=== PATIENT | male | born 1965 | race Caucasian/White ===

== ENCOUNTER 2022-12-26 17:07 | Inpatient (IN) | payer MEDICAID ==
[~2022-12-26] VITALS: Ht 177.8 cm; Wt 91.6 kg
[2022-12-26] MEDS ORDERED: AZITHROMYCIN 250 MG TABLET PO ONE (17:30)
[2022-12-26] MEDS ORDERED: CEFTRIAXONE 1 G in IV DEXTROSE 5% 50 ML IV ONE (17:30)
[2022-12-26] MEDS ORDERED: DEXAMETHASONE SOD PHOSPHATE 4 MG INJ IV ONE (17:30)
[2022-12-26] MEDS ORDERED: CEFTRIAXONE /D5W 50ML IVPB **ER PYXIS IV ONE (17:35)
[2022-12-26] MEDS ORDERED: AZITHROMYCIN 250 MG TABLET ONE (17:36)
[2022-12-26] MEDS ORDERED: DEXAMETHASONE SOD PHOSPHATE 10 MG INJ ONE (17:36)
[2022-12-26 17:37] LABS: BASOPHILS # (AUTO) 0.2 K/UL (0.0-0.2); DIFFERENTIAL COMMENT 1; EOSINOPHILS # (AUTO) 0.1 K/uL (0.0-0.7); EOSINOPHILS % (AUTO) 0.9 % (0.0-7.0); HEMATOCRIT 59.4 % (36.7-47.1); HEMOGLOBIN 19.1 g/dL (12.5-16.3); LYMPHOCYTES % (AUTO) 24.3 % (20.5-51.5); MEAN CORPUSCULAR HEMOGLOBIN 27.8 uug (23.8-33.4); MEAN CORPUSCULAR HGB CONC 32 g/dL (32.5-36.3); MEAN CORPUSCULAR VOLUME 86.1 fL (73.0-96.2); MONOCYTES # (AUTO) 0.5 K/uL (0.1-1.30); MONOCYTES % (AUTO) 6.3 % (0.0-11.0); NEUTROPHILS # (AUTO) 5.5 K/uL (1.8-8.9); NEUTROPHILS % (AUTO) 65.5 % (38.5-71.5); PLATELET COUNT (AUTO) 200 K/uL (152-348); WHITE BLOOD COUNT (AUTO) 8.4 K/uL (3.6-10.2)
[2022-12-26 17:46] LABS: CALCIUM 10.1 mg/dL (8.5-10.1); CARBON DIOXIDE 26 mmol/L (21-32); CHLORIDE 100 mmol/L (98-107); CREATININE 1.7 mg/dL (0.6-1.3); GLUCOSE 108 mg/dL (74-106); POTASSIUM 3.8 mmol/L (3.5-5.1); SODIUM SERUM 135 mmol/L (136-145); UREA NITROGEN, BLOOD 18 mg/dL (7-18)
[2022-12-26 17:59] LABS: ALANINE AMINOTRANSFERASE 28 U/L (16-63); ALBUMIN 3.9 g/dL (3.4-5.0); ALKALINE PHOSPHATASE 78 U/L (50-136); ASPARTATE AMINOTRANSFERASE 15 U/L (15-37); BILIRUBIN,DIRECT 0.2 mg/dL (0.0-0.2); NT-PRO BNP 17 pg/mL (0-125); TOTAL PROTEIN, SERUM 8.8 g/dL (6.4-8.2)
[2022-12-26] MEDS ORDERED: IV NORMAL SALINE 1000 ML BAG IV ONE (18:00)
[2022-12-27 00:18] VITALS: BP 137/75; TEMP 98.2; O2SAT 96
[2022-12-27] MEDS ORDERED: ONDANSETRON 4 MG/2 ML VIAL IV PRN (00:45)
[2022-12-27] MEDS ORDERED: ACETAMINOPHEN 325 MG TABLET PO PRN (00:45)
[2022-12-27] MEDS ORDERED: IV 0.9% SODIUM CHLORID+ 20 KCL 1,000 ML ONE (02:36)
[2022-12-27] MEDS: ZOLPIDEM 5 MG TABLET PO PRN ×2 (03:04→21:17)
[2022-12-27] MEDS: POTASSIUM CHLORIDE 20 MEQ in IV NS 1000 ML 1,000 ML IV PRN ×2 (03:12→15:28)
[2022-12-27 04:30] VITALS: BP 118/64; TEMP 98.2; O2SAT 96
[2022-12-27] MEDS: PANTOPRAZOLE SODIUM 40 MG TABLET.DR PO SCH (06:17)
[2022-12-27 06:42] LABS: BASOPHILS % (AUTO) 0.2 % (0.0-2.0); HEMATOCRIT 50.5 % (36.7-47.1); HEMOGLOBIN 16.6 g/dL (12.5-16.3); LYMPHOCYTES % (AUTO) 13.9 % (20.5-51.5); MEAN CORPUSCULAR HGB CONC 33 g/dL (32.5-36.3); MONOCYTES # (AUTO) 0.2 K/uL (0.1-1.30); MONOCYTES % (AUTO) 2.3 % (0.0-11.0); NEUTROPHILS # (AUTO) 6.3 K/uL (1.8-8.9); NEUTROPHILS % (AUTO) 83.6 % (38.5-71.5); PLATELET COUNT (AUTO) 175 K/uL (152-348); RED BLOOD CELL COUNT(AUTO) 5.93 MIL/uL (4.06-5.63); RED CELL DISTRIBUTION WIDTH 16.8 % (12.1-16.2); WHITE BLOOD COUNT (AUTO) 7.5 K/uL (3.6-10.2)
[2022-12-27 07:00] LABS: DIFFERENTIAL COMMENT 1
[2022-12-27 07:02] LABS: ALBUMIN 3.1 g/dL (3.4-5.0); BILIRUBIN,TOTAL 0.6 mg/dL (0.2-1.0); CALCIUM 8.9 mg/dL (8.5-10.1); CREATININE 1.6 mg/dL (0.6-1.3); PHOSPHOROUS 3.1 mg/dL (2.5-4.9); POTASSIUM 4.1 mmol/L (3.5-5.1); TOTAL PROTEIN, SERUM 7.2 g/dL (6.4-8.2)
[2022-12-27 07:21] LABS: IRON, SERUM 35 ug/dL (50-175)
[2022-12-27 11:31] VITALS: BP 102/64; TEMP 97.6; O2SAT 98
[2022-12-27] MEDS ORDERED: LOSA25TA27 PO (15:31)
[2022-12-27] MEDS ORDERED: ASPI-1101 PO (15:31)
[2022-12-27] MEDS ORDERED: SERT-439 PO (15:32)
[2022-12-27] MEDS ORDERED: ABAC1TAB15 PO (15:32)
[2022-12-27] MEDS ORDERED: BISO5TAB20 PO (15:33)
[2022-12-27] MEDS ORDERED: CYAN10006 IM (15:35)
[2022-12-27] MEDS ORDERED: TEST200V3 IM (15:36)
[2022-12-27] MEDS ORDERED: TAMS-3 PO (15:37)
[2022-12-27 15:50] VITALS: BP 116/56; TEMP 97.7; O2SAT 96
[2022-12-27] MEDS ORDERED: CYANOCOBALAMIN 1000 MCG/ML VIAL IM SCH (16:00)
[2022-12-27] MEDS ORDERED: TESTOSTERONE CYPIONATE 200 MG/ML VIAL IM SCH (16:00)
[2022-12-27 20:32] VITALS: BP 111/55; TEMP 98; O2SAT 96
[2022-12-27] MEDS: TAMSULOSIN HCL 0.4 MG CAP.SR.24H PO SCH (21:17)
[2022-12-28 04:10] VITALS: BP 122/69; TEMP 98; O2SAT 96
[2022-12-28] MEDS: POTASSIUM CHLORIDE 20 MEQ in IV NS 1000 ML 1,000 ML IV PRN ×2 (05:05→19:20)
[2022-12-28] MEDS: PANTOPRAZOLE SODIUM 40 MG TABLET.DR PO SCH (06:08)
[2022-12-28] MEDS: SERTRALINE HCL 50 MG TABLET PO SCH (08:14)
[2022-12-28] MEDS: ATENOLOL 50 MG TABLET PO SCH (08:14)
[2022-12-28] MEDS: ASPIRIN EC 81 MG TABLET.DR PO SCH (08:18)
[2022-12-28] MEDS ORDERED: Medication Not On Formulary EA (Bisoprolol Fumarate 5 MG) PO SCH (09:00)
[2022-12-28 11:31] VITALS: BP 111/64; TEMP 98.2; O2SAT 97
[2022-12-28] MEDS: LOPERAMIDE HCL 2 MG CAPSULE PO PRN (14:31)
[2022-12-28] MEDS: LORAZEPAM 1 MG TABLET PO PRN (15:27)
[2022-12-28 15:29] LABS: *BILIRUBIN,URIN NEGATIVE (NEGATIVE); *BLOOD, URINE NEGATIVE (NEGATIVE); *CLARITY,URINE CLEAR (CLEAR); *COLOR,URINE LIGHT YELLOW (YELLOW); *KETONES,URINE NEGATIVE (NEGATIVE); *PROTEIN,URINE NEGATIVE (NEGATIVE); *UROBILINOGEN,URINE 0.2 E.U./dl (NORMAL); LEUKOCYTE ESTERASE ,URINE NEGATIVE (NEGATIVE); NITRITE, URINE NEGATIVE (NEGATIVE); PH,URINE 5.5 (5.0-8.0); UGLUCOSE NEGATIVE (NEGATIVE)
[2022-12-28 16:00] VITALS: BP 122/67; TEMP 98.2; O2SAT 96
[2022-12-28 16:07] LABS: *CREATININE,URINE 47.6 mg/dL (30-125); *URINE TOTAL PROTEIN RANDOM 6.3 mg/dL (<150/24HR)
[2022-12-28 20:00] VITALS: BP 124/62; TEMP 98.7; O2SAT 97
[2022-12-28] MEDS: TAMSULOSIN HCL 0.4 MG CAP.SR.24H PO SCH (20:00)
[2022-12-29 04:00] VITALS: BP 137/82; TEMP 98.5; O2SAT 99
[2022-12-29] MEDS: PANTOPRAZOLE SODIUM 40 MG TABLET.DR PO SCH (06:15)
[2022-12-29 07:13] LABS: BASOPHILS % (AUTO) 0.5 % (0.0-2.0); EOSINOPHILS # (AUTO) 0.1 K/uL (0.0-0.7); EOSINOPHILS % (AUTO) 1.6 % (0.0-7.0); HEMATOCRIT 47.9 % (36.7-47.1); HEMOGLOBIN 15.7 g/dL (12.5-16.3); LYMPHOCYTES # (AUTO) 1.6 K/uL (0.8-4.8); LYMPHOCYTES % (AUTO) 27.6 % (20.5-51.5); MEAN CORPUSCULAR HEMOGLOBIN 27.9 uug (23.8-33.4); MEAN CORPUSCULAR HGB CONC 33 g/dL (32.5-36.3); MEAN CORPUSCULAR VOLUME 85.3 fL (73.0-96.2); MONOCYTES # (AUTO) 0.4 K/uL (0.1-1.30); MONOCYTES % (AUTO) 6.6 % (0.0-11.0); NEUTROPHILS # (AUTO) 3.6 K/uL (1.8-8.9); NEUTROPHILS % (AUTO) 63.7 % (38.5-71.5); PLATELET COUNT (AUTO) 145 K/uL (152-348); RED BLOOD CELL COUNT(AUTO) 5.62 MIL/uL (4.06-5.63); RED CELL DISTRIBUTION WIDTH 16.7 % (12.1-16.2); WHITE BLOOD COUNT (AUTO) 5.7 K/uL (3.6-10.2)
[2022-12-29 07:30] LABS: BILIRUBIN,TOTAL 0.4 mg/dL (0.2-1.0); CALCIUM 8.5 mg/dL (8.5-10.1); CREATININE 1.4 mg/dL (0.6-1.3); MAGNESIUM 1.8 mg/dL (1.8-2.4); PHOSPHOROUS 2.8 mg/dL (2.5-4.9); POTASSIUM 3.8 mmol/L (3.5-5.1); TOTAL PROTEIN, SERUM 6.7 g/dL (6.4-8.2)
[2022-12-29 07:55] LABS: DIFFERENTIAL COMMENT 1
[2022-12-29 08:00] VITALS: BP 126/78; TEMP 98; O2SAT 98
[2022-12-29] MEDS: SERTRALINE HCL 50 MG TABLET PO SCH (09:21)
[2022-12-29] MEDS: ASPIRIN EC 81 MG TABLET.DR PO SCH (09:21)
[2022-12-29] MEDS: ATENOLOL 50 MG TABLET PO SCH (09:21)
[2022-12-29] MEDS: HYDROCODONE/APAP 5-325MG TABLET PO PRN ×2 (09:22→21:25)
[2022-12-29] MEDS: POTASSIUM CHLORIDE 20 MEQ in IV NS 1000 ML 1,000 ML IV PRN ×2 (09:27→21:25)
[2022-12-29] MEDS: TRIUMEQ PO SCH ×3 (09:41→09:43)
[2022-12-29 11:34] VITALS: BP 107/63; TEMP 97.8; O2SAT 97
[2022-12-29 16:00] VITALS: BP 109/61; TEMP 98.4; O2SAT 98
[2022-12-29] MEDS: LOPERAMIDE HCL 2 MG CAPSULE PO PRN (16:58)
[2022-12-29 20:00] VITALS: BP 127/80; TEMP 98.6; O2SAT 97
[2022-12-29] MEDS: TAMSULOSIN HCL 0.4 MG CAP.SR.24H PO SCH (20:48)
[2022-12-30 04:00] VITALS: BP 139/83; TEMP 98; O2SAT 97
[2022-12-30] MEDS: HYDROCODONE/APAP 5-325MG TABLET PO PRN (04:26)
[2022-12-30 06:06] LABS: PTH, INTACT 37 pg/mL (15-65)
[2022-12-30] MEDS: PANTOPRAZOLE SODIUM 40 MG TABLET.DR PO SCH (06:06)
[2022-12-30 07:18] LABS: BASOPHILS % (AUTO) 0.6 % (0.0-2.0); EOSINOPHILS # (AUTO) 0.1 K/uL (0.0-0.7); HEMATOCRIT 47.5 % (36.7-47.1); HEMOGLOBIN 15.6 g/dL (12.5-16.3); LYMPHOCYTES # (AUTO) 1.4 K/uL (0.8-4.8); LYMPHOCYTES % (AUTO) 26.6 % (20.5-51.5); MEAN CORPUSCULAR HEMOGLOBIN 27.9 uug (23.8-33.4); MEAN CORPUSCULAR HGB CONC 33 g/dL (32.5-36.3); MEAN CORPUSCULAR VOLUME 85.4 fL (73.0-96.2); MONOCYTES # (AUTO) 0.3 K/uL (0.1-1.30); MONOCYTES % (AUTO) 6.2 % (0.0-11.0); NEUTROPHILS # (AUTO) 3.4 K/uL (1.8-8.9); NEUTROPHILS % (AUTO) 64.6 % (38.5-71.5); PLATELET COUNT (AUTO) 154 K/uL (152-348); RED BLOOD CELL COUNT(AUTO) 5.57 MIL/uL (4.06-5.63); RED CELL DISTRIBUTION WIDTH 16.8 % (12.1-16.2); WHITE BLOOD COUNT (AUTO) 5.3 K/uL (3.6-10.2)
[2022-12-30 07:29] LABS: DIFFERENTIAL COMMENT 1
[2022-12-30 07:30] VITALS: BP 126/77; TEMP 98.4; O2SAT 97
[2022-12-30 07:35] LABS: CALCIUM 8.2 mg/dL (8.5-10.1); CREATININE 1.5 mg/dL (0.6-1.3); MAGNESIUM 1.8 mg/dL (1.8-2.4); POTASSIUM 3.6 mmol/L (3.5-5.1)
[2022-12-30] MEDS: POTASSIUM CHLORIDE 20 MEQ in IV NS 1000 ML 1,000 ML IV PRN ×2 (08:45→23:49)
[2022-12-30] MEDS: TRIUMEQ PO SCH (08:45)
[2022-12-30] MEDS: SERTRALINE HCL 50 MG TABLET PO SCH (08:46)
[2022-12-30] MEDS: ASPIRIN EC 81 MG TABLET.DR PO SCH (08:46)
[2022-12-30] MEDS: ATENOLOL 50 MG TABLET PO SCH (08:46)
[2022-12-30 10:06] LABS: A/G RATIO 0.8 (0.7-1.7); ALBUMIN 3.1 g/dL (2.9-4.4); ALPHA-1-GLOBULIN 0.2 g/dL (0.0-0.4); ALPHA-2-GLOBULIN 0.7 g/dL (0.4-1.0); BETA GLOBULIN 1.1 g/dL (0.7-1.3); GAMMA GLOBULIN 1.7 g/dL (0.4-1.8); GLOBULIN, TOTAL 3.7 g/dL (2.2-3.9); M-SPIKE Not Observed g/dL (Not Observed)
[2022-12-30 11:09] VITALS: BP 138/82; TEMP 98.2; O2SAT 97
[2022-12-30] MEDS ORDERED: MECLIZINE HCL 25 MG TABLET PO PRN (12:00)
[2022-12-30 15:13] VITALS: BP 127/74; TEMP 98; O2SAT 98
[2022-12-30 20:22] VITALS: BP 142/84; TEMP 98.2; O2SAT 98
[2022-12-30] MEDS: TAMSULOSIN HCL 0.4 MG CAP.SR.24H PO SCH (20:23)
[2022-12-30] MEDS: LORAZEPAM 1 MG TABLET PO PRN (23:49)
[2022-12-31 04:20] VITALS: BP 137/81; TEMP 98.2; O2SAT 97
[2022-12-31] MEDS: PANTOPRAZOLE SODIUM 40 MG TABLET.DR PO SCH (06:04)
[2022-12-31 06:43] LABS: EOSINOPHILS # (AUTO) 0.6 K/uL (0.0-0.7); EOSINOPHILS % (AUTO) 9.3 % (0.0-7.0); HEMATOCRIT 49.5 % (36.7-47.1); HEMOGLOBIN 16.4 g/dL (12.5-16.3); LYMPHOCYTES # (AUTO) 0.4 K/uL (0.8-4.8); LYMPHOCYTES % (AUTO) 7.5 % (20.5-51.5); MEAN CORPUSCULAR HEMOGLOBIN 28.1 uug (23.8-33.4); MEAN CORPUSCULAR HGB CONC 33 g/dL (32.5-36.3); MEAN CORPUSCULAR VOLUME 84.6 fL (73.0-96.2); MONOCYTES # (AUTO) 0.7 K/uL (0.1-1.30); MONOCYTES % (AUTO) 11.2 % (0.0-11.0); NEUTROPHILS # (AUTO) 4.3 K/uL (1.8-8.9); PLATELET COUNT (AUTO) 153 K/uL (152-348); RED BLOOD CELL COUNT(AUTO) 5.85 MIL/uL (4.06-5.63); RED CELL DISTRIBUTION WIDTH 16.7 % (12.1-16.2)
[2022-12-31 06:57] LABS: CALCIUM 8.8 mg/dL (8.5-10.1); CREATININE 1.6 mg/dL (0.6-1.3); MAGNESIUM 1.8 mg/dL (1.8-2.4); PHOSPHOROUS 3.1 mg/dL (2.5-4.9); POTASSIUM 3.9 mmol/L (3.5-5.1)
[2022-12-31] MEDS: HYDROCODONE/APAP 5-325MG TABLET PO PRN ×2 (06:57→14:24)
[2022-12-31 06:59] LABS: DIFFERENTIAL COMMENT 1
[2022-12-31 08:00] VITALS: BP 126/77; TEMP 98; O2SAT 97
[2022-12-31] MEDS: TRIUMEQ PO SCH (10:11)
[2022-12-31] MEDS: ASPIRIN EC 81 MG TABLET.DR PO SCH (10:12)
[2022-12-31] MEDS: SERTRALINE HCL 50 MG TABLET PO SCH (10:12)
[2022-12-31] MEDS: ATENOLOL 50 MG TABLET PO SCH (10:12)
[2022-12-31 11:35] VITALS: BP 119/74; TEMP 98.5; O2SAT 97
[2022-12-31] MEDS: LOPERAMIDE HCL 2 MG CAPSULE PO PRN (14:57)
[2022-12-31 15:06] VITALS: BP 120/63; TEMP 98.4; O2SAT 94
[2022-12-31] MEDS: MECLIZINE HCL 25 MG TABLET PO SCH (15:45)
[2022-12-31] MEDS: TAMSULOSIN HCL 0.4 MG CAP.SR.24H PO SCH (20:22)
[2022-12-31 22:14] VITALS: BP 127/76; TEMP 98.6
[2022-12-31] MEDS: LORAZEPAM 1 MG TABLET PO PRN (23:52)
[2023-01-01] MEDS: HYDROCODONE/APAP 5-325MG TABLET PO PRN ×2 (04:17→10:10)
[2023-01-01] MEDS: PANTOPRAZOLE SODIUM 40 MG TABLET.DR PO SCH (06:03)
[2023-01-01 06:05] VITALS: BP 116/72; TEMP 98.6
[2023-01-01 07:20] LABS: BASOPHILS % (AUTO) 0.6 % (0.0-2.0); EOSINOPHILS # (AUTO) 0.1 K/uL (0.0-0.7); EOSINOPHILS % (AUTO) 1.9 % (0.0-7.0); HEMATOCRIT 52.1 % (36.7-47.1); HEMOGLOBIN 17.2 g/dL (12.5-16.3); LYMPHOCYTES # (AUTO) 1.7 K/uL (0.8-4.8); MEAN CORPUSCULAR HEMOGLOBIN 28.2 uug (23.8-33.4); MEAN CORPUSCULAR HGB CONC 33 g/dL (32.5-36.3); MEAN CORPUSCULAR VOLUME 85.2 fL (73.0-96.2); MONOCYTES # (AUTO) 0.5 K/uL (0.1-1.30); MONOCYTES % (AUTO) 7.6 % (0.0-11.0); NEUTROPHILS % (AUTO) 62.9 % (38.5-71.5); PLATELET COUNT (AUTO) 168 K/uL (152-348); RED BLOOD CELL COUNT(AUTO) 6.11 MIL/uL (4.06-5.63); RED CELL DISTRIBUTION WIDTH 16.3 % (12.1-16.2); WHITE BLOOD COUNT (AUTO) 6.3 K/uL (3.6-10.2)
[2023-01-01 07:23] LABS: DIFFERENTIAL COMMENT 1
[2023-01-01 07:42] LABS: CALCIUM 9.4 mg/dL (8.5-10.1); CREATININE 1.7 mg/dL (0.6-1.3); MAGNESIUM 1.9 mg/dL (1.8-2.4); PHOSPHOROUS 3.6 mg/dL (2.5-4.9); POTASSIUM 4.1 mmol/L (3.5-5.1)
[2023-01-01] MEDS: TRIUMEQ PO SCH (10:02)
[2023-01-01] MEDS: SERTRALINE HCL 50 MG TABLET PO SCH (10:02)
[2023-01-01] MEDS: ASPIRIN EC 81 MG TABLET.DR PO SCH (10:02)
[2023-01-01] MEDS: MECLIZINE HCL 25 MG TABLET PO SCH ×3 (10:02→16:22)
[2023-01-01] MEDS: ATENOLOL 50 MG TABLET PO SCH (10:05)
[2023-01-01] MEDS ORDERED: ATEN50TA PO (13:27)
[2023-01-01] MEDS ORDERED: MECL-159 PO (13:27)
[2023-01-01 16:07] VITALS: BP 123/81; TEMP 97.7; O2SAT 97
== END 2023-01-01 18:40 | DRG 421 ==
LOC: ER 17:13 → MEDSURG3 21:53
PROVIDERS: ADMIT Internal Medicine; ATTEND Student in an Organized Health Care Education/Training Program
DX: R62.7 Adult failure to thrive (principal); E44.1 Mild protein-calorie malnutrition; E87.1 Hypo-osmolality and hyponatremia; E86.0 Dehydration; R19.7 Diarrhea, unspecified; R53.1 Weakness; I12.9 Hypertensive chronic kidney disease with stage 1 through stage 4 chronic kidney disease, or unspecified chronic kidney disease; N18.9 Chronic kidney disease, unspecified; F41.9 Anxiety disorder, unspecified; F39 Unspecified mood [affective] disorder; N40.0 Benign prostatic hyperplasia without lower urinary tract symptoms; Z59.01 Sheltered homelessness
CPT/HCPCS: 36415; 71045; 73030; 76770; 83550; 83605; 83735; 83970; 84100; 84155; 84165; 84300; 84484; 85025; 85730; 87040; 93005; A4606; A4663; G0378; J0696; J1100; J3480; J7040; J8597; Q0144